=== PATIENT | female | born 1995 | race Caucasian/White ===

== ENCOUNTER 2018-10-04 18:09 | Inpatient (IN) ==
[2018-10-04 12:26] LABS: Amphetamine Screen,Urine Negative ng/mL (Cutoff=1000); Barbiturate Screen,Urine Negative ng/mL (Cutoff=200); Basophils % 0.3 %; Benzodiazepines Screen,Urine Negative ng/mL (Cutoff=200); Cannabinoid Screen,Urine Negative ng/mL (Cutoff = 50); Cocaine Screen,Urine Negative ng/mL (Cutoff= 300); Eosinophils # 0.1 K/mcL (0.0-0.6); Eosinophils % 0.5 %; Hemoglobin 13.5 g/dL (11.5-15.4); Immature Granulocytes % 0.4 % (0-4); Lymphocytes % 18.8 %; Mean Corpuscular HGB Conc 33.8 g/dL (31.6-35.5); Mean Corpuscular Hemoglobin 27.7 pg (28.0-33.3); Mean Corpuscular Volume 82.1 fL (83.0-100.0); Mean Platelet Volume 10.3 fL (9.4-12.4); Monocytes # 0.7 K/mcL (0.0-1.3); Neutrophils # 7.6 K/mcL (1.6-8.9); Opiate Screen,Urine Negative ng/mL (Cutoff=300); Phencyclidine Screen,Urine Negative ng/mL (Cutoff=25); Platelet Count 236 K/mcL (140-400); Red Blood Count 4.87 M/mcL (3.82-4.97)
[2018-10-04 12:40] LABS: Creatinine,Urine 147 mg/dL; Protein/Creatinine Ratio,Urine 2.49 mg/mg (0.00-0.20)
[2018-10-04 13:30] LABS: Bilirubin,Urine Negative (Negative); Blood,Urine Negative (Negative); Clarity,Urine Cloudy (Clear); Color,Urine Yellow (Yellow); Glucose,Urine (UA) Normal (Normal); Ketones,Urine Negative (Negative); Leukocyte Esterase,Urine Negative (Negative); Nitrite,Urine Negative (Negative); PH,Urine 6.5 pH Units (5.0-8.0); Protein,Urine >=300 mg/dL (Neg-Trace); Specific Gravity,Urine 1.022 (1.010-1.025); Urobilinogen,Urine Normal (Normal)
[2018-10-04 13:56] LABS: Bacteria,Urine Moderate per hpf (None-Few); RBC,Urine 0-3 per hpf (0-3); Squamous Epithelial Cell,Urine Many per lpf (None-Few)
[2018-10-04 13:57] LABS: WBC,Urine 0-3 per hpf (0-3)
[2018-10-04 14:50] LABS: Alanine Aminotransferase 13 Units/L (7-52); Aspartate Amino Transferase 13 Units/L (13-39); BUN/Creatinine Ratio 24 (6-26); Blood Urea Nitrogen 12 mg/dL (6-20); Lactate Dehydrogenase 126 Units/L (140-271); eGFR For Non-African Americans > 60 (> 60)
[2018-10-04 15:56] LABS: Total Volume 24 Hour,Urine 1.09 Liters (0.60-1.60)
[2018-10-04 16:11] LABS: Protein/Creatinine Ratio,Urine 0.95 mg/mg (0.00-0.20)
[~2018-10-04 18:09] MED LIST: Acetaminophen 325 MG TABLET PO PRN; Ringers Solution, Lactated 1,000 ML ONE; Ringers Solution, Lactated 500 ML IVC ONE
--- NOTE | 2018-10-04 18:15 | OB/GYN History & Physical ---
Date of Encounter: 10/04/18 Time of Encounter: 18:13 Assessment and Plan (1) 35 weeks gestation of Current visit: Yes Status: Acute Admitted for ongoing during of hypertension Will be taken to the OR for tonight (2) Hypertension complicating in third trimester Current visit: Yes Status: Acute Pressures as high as 180/101 Normotensive pressures as well Will not be treated as patient will be going for (3) Late deceleration of heart rate Current visit: Yes Status: Acute Patient will be taken to the OR for Risks versus benefits discussed with the patient and she is understanding and willing to go to the OR History of Present Illness Chief complaint: Hypertension in HPI: Ms. Galloway is a 23 year old female who presents for elevated blood pressures. She was sent from an office visit that occurred today for further monitoring. She has been mostly asymptomatic from her hypertension with the exception of a headache today. She is , currently 35 weeks . She denies past medical conditions and has been receiving adequate care taking daily folic acid and vitamins. She states she feels movement and denies vaginal bleeding or leakage. Denies contractions at this time. Blood type A+ GBS pending from 10/02 HBSAG neg RPR neg Rubella immune Varicella immune Hep C non-reactive Past Med Surg Social Fam HX - Past Medical History Attestation: Yes The following information was validated with the patient. Source: patient Medical history: no medical history Psychiatric history: no psych history - Past Surgical History Additional surgical history: Left elbow surgery 1999 - Social History Smoking Status: Former smoker Alcohol use: none Drug use: none - Family History Father Hx Family Cardiac Disorders: No Hx Family Respiratory Disorders: No Hx Family Cancer: No Hx Family GI Disorders: No Hx Family Genitourinary Disorders: No Hx Family Endocrine Disorder: No Hx Family Musculoskeletal Disorders: No Hx Family Neuromuscular Disorders: No Hx Family Neurologic Disorders: No Hx Family HEENT Disorders: No Hx Family Autoimmune Disorders: No Hx Family Reproductive Disorders: No Hx Family Psychosocial Disorders: No Hx Family Medical Disorders: No Obstetrical History - Pregnancies : 1 Para: 0 Term: 0 : 0 Ab's: 0 Livin Medications and Allergies Pnv95/Ferrous Fumarate/FA [ Vitamin Tablet] 1 each PO 10/04/18 [History] Allergy/AdvReac Type Severity Reaction Status Date / Time No Known Allergies Allergy Verified 07/09/18 18:19 Review of System OB All systems PM: reviewed and no additional remarkable complaints except as stated Exam - Constitutional Constitutional: well developed, well nourished, no acute distress - HEENT HEENT: EOMI, PERRL, Normocephaly, Mucus Membranes Moist - Neck Neck exam: full ROM - Lungs Respiratory exam: CTAB - Cardiovascular Cardiovascular exam: RRR, +S1, +S2 - Breasts Breast: bilateral: normal - Abdomen Abdomen: Present: bowel sounds normal, gravid, non tender - Extremities Extremities exam: pedal edema, warm Results Result Diagrams: 10/04/18 11:50 10/04/18 13:32 Abnormal lab results MCV 82.1 fL (83.0-100.0) L 10/04/18 11:50 MCH 27.7 pg (28.0-33.3) L 10/04/18 11:50 Creatinine 0.50 mg/dL (0.60-1.20) L 10/04/18 13:32 Lactate Dehydrogenase 126 Units/L (140-271) L 10/04/18 13:32 Urine Clarity Cloudy (Clear) A 10/04/18 11:35 Urine Protein >=300 mg/dL (Neg-Trace) H 10/04/18 11:35 Ur Squamous Epith Cells Many per lpf (None-Few) H 10/04/18 11:35 Urine Bacteria Moderate per hpf (None-Few) H 10/04/18 11:35 Ur Total Protein 24 Hr 1537 mg/day (50-80) H 10/04/18 08:00 Protein/Creatinin Ratio 2.49 mg/mg (0.00-0.20) H 10/04/18 11:50 Urine Total Protein 366 mg/dL (1-14) H 10/04/18 11:50 All other labs normal. - VTE Reasons for not Prescribing Prophylaxis: Treatment not Indicated - Low risk for VTE
--- NOTE | 2018-10-04 18:33 | Anesthesia Evaluation PreOp ---
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 HX Other Medical History: Denies Any Significant HX Anesthesia History: No Prior Anesthetic Complications : Yes Test: Positive Alcohol Use: none Drug use: none Medications and Allergies Pnv95/Ferrous Fumarate/FA [ Vitamin Tablet] 1 each PO 10/04/18 [History] Allergy/AdvReac Type Severity Reaction Status Date / Time No Known Allergies Allergy Verified 07/09/18 18:19 - Meds/Allergy Pre-op Review Medications Reviewed: Yes Allergies Reviewed: Yes Beta Blockers on Current Med List: No Anesthesia Results - Labs 10/04/18 11:50 10/04/18 13:32 Anesthesia Exam - HEENT Pupil (Motor): Pupils equal Mallampati: II Teeth: Normal Oral Opening: Greater than 3 - CAR RENTAL SERVICE ATTENDANT LOC: Oriented CAR RENTAL SERVICE ATTENDANT Motor: Normal RUE, Normal LUE, Normal RLE, Normal LLE, Normal Face [employer] SERVICE ATTENDANT Sensory: Normal: RUE, LUE, RLE, LLE, Face - Cardiac Rhythm: Regular Murmur: None JVD: No Carotid Bruit: No - Pulmonary Breath Sounds: bilateral Clear Respiratory Effort: Symmetrical Anesthesia Assess/Plan ASA Score: 2 Level of consciousness: Cooperative Anesthetic Plan: Spinal
[2018-10-04] MEDS ORDERED: Metoclopramide 10 MG/2 ML VIAL IVP PRN ×2 (18:34→20:22)
[2018-10-04] MEDS ORDERED: Famotidine 20 MG/2 ML VIAL IVP PRN (18:34)
[2018-10-04] MEDS ORDERED: Naloxone 0.4 MG/ML INJ IVP PRN (18:34)
[2018-10-04] MEDS ORDERED: Ringers Solution, Lactated 1,000 ML ONE ×2 (18:40→19:54)
[2018-10-04] MEDS ORDERED: *HR* FentaNYL (PF) 100 MCG/2 ML VIAL ONE (18:40)
[2018-10-04] MEDS ORDERED: *HR* Morphine Sulfate/PF 10 MG/10 ML AMPUL ONE (18:40)
[2018-10-04] MEDS ORDERED: EPHEDrine 50 MG/ML VIAL ONE (18:40)
[2018-10-04] MEDS ORDERED: Bupivacaine-MPF 0.25% 10 ML VIAL ONE (18:40)
[2018-10-04] MEDS ORDERED: Lidocaine -MPF 1% 5 ML AMPUL ONE (18:40)
[2018-10-04] MEDS ORDERED: *HR* Oxytocin 10 UNIT/ML VIAL IM ONE ×2 (18:40→19:54)
[2018-10-04] MEDS ORDERED: *HR* OxyCODONE Immed Rel 5 MG TABLET PO PRN (19:31)
[2018-10-04] MEDS ORDERED: *HR* Meperidine 25 MG/ML SYRINGE IVP PRN (19:31)
[2018-10-04] MEDS ORDERED: Ondansetron 4 MG/2 ML VIAL IVP ONE (19:31)
[2018-10-04] MEDS ORDERED: Ketorolac 30 MG/ML VIAL IVP ONE (19:31)
[2018-10-04] MEDS ORDERED: Albuterol 2.5 MG/3 ML NEBULIZER IH ONE (19:31)
[2018-10-04] MEDS ORDERED: *HR* HYDROmorphone (PF) 1 MG/ML SYRINGE IVP PRN (19:31)
[2018-10-04] MEDS ORDERED: *HR* Labetalol 20 MG/4 ML SYRINGE IVP PRN (19:31)
[2018-10-04] MEDS ORDERED: *HR* Promethazine 25 MG/ML VIAL IVP PRN (19:31)
[2018-10-04] MEDS ORDERED: Acetaminophen IV 1,000 MG/100 ML INFUS..BTL IVPB ONE (19:31)
[2018-10-04] MEDS ORDERED: Ondansetron 4 MG/2 ML VIAL ONE (19:32)
[2018-10-04] MEDS ORDERED: Dexamethasone 4 MG/ML VIAL ONE (19:32)
[2018-10-04] MEDS ORDERED: Ketorolac 30 MG/ML VIAL ONE (19:32)
[2018-10-04] MEDS ORDERED: Sennosides 8.6 MG TABLET PO PRN (20:22)
[2018-10-04] MEDS ORDERED: Ondansetron 4 MG/2 ML VIAL IVP PRN (20:22)
[2018-10-04] MEDS ORDERED: Simethicone 80 MG TAB.CHEW PO PRN (20:22)
[2018-10-04] MEDS ORDERED: Oxytocin 20 units/ LR 1000 mL 20 UNIT/1,000 ML BAG IVC SCH (20:30)
--- NOTE | 2018-10-04 20:43 | OB/GYN Procedure Note ---
Section - Date of procedure: 10/04/18 Preop diagnosis: category 3 FHT tracing Post-op diagnosis: same Procedure: primary low transverse Surgeon: Alcira Miller Blood Loss: 300 Was there an assistant to the vice president present: No Anesthesia Type: Spinal section complications: uterine atony Disposition: L&D Recovery Room Specimens: Placenta, Cord segment, Cord blood - (s) A Infant Delivery Date: 10/04/18 Infant Delivery Time: 19:20 Presentation: vertex Gender: Male Viability: Viable Pounds: 4 Ounces: 5 at 1 minute: 8 at 5 minutes: 9 - Narrative Narrative: Patient presented for R/o PreE with mild range BP at 35+ weeks GA. Patient with UPC 2.45, elevated 24hr urine and BPs (mild ranging). Unfortunately CEFM revealed recurrent late deceleration(s). Unfortunately we had to call this an emergent or "STAT" primary low transverse delivery due to non- reassuring well-being. The patient was taken to the OR, where we were able to get adequate spinal anestehsia with a reassuring tracing. Regardless of this temporary reassurance, the plan to proceed with delivery was made as her tracing had been CAT III. The patient was then prepped and draped in the usual sterile fashion. A pfannenstiel skin incision was made, carried down to the level of the fascia. We scored the fascia at the midline and then extended the incision bilaterally using curved mayos. We then tented up the anterior and inferior fascia layers and it from the abdominis rectus muscle. This plane was then taken do wn both superiorly and inferiorly. We then bluntly entered the abdominal cavity at the midline, and with bilateral but equal tension we the peritoneal layer. A bladder blade was then placed with more than adequate visualization of the lower uterine segment. The bladder reflection was then appreciated. Hysterotomy was performed in a low transverse fashion. We then the hysterotomy inferiorly and superiorly without extension. Baby was found to be in the vertex presentation. Spontaneous AROM (clear fluid) occurred with manual manipulation of delivery. THe delivered with adequate fundal pressure, no nuchal appreciated. THe baby was vigorous and crying, we clamped and cut after 30 second cord delay. Baby was handed off to the NICU team and warmer for further evaluation. We then exteriorized the uterus and removed the placenta. Placenta was labeled and sent to pathology. Cord blood was also collected with a cord segment. Gases were not collected/sent. We then closed the hysterotomy in two layers. IN a running locked fashion, we used 0-vicryl suture to close the hysterotomy. We then used 2-0 chromic gut to imbricate the incision. IV pitocin was c ontinued and we had to also start hemabate for persistent oozing. Two figure of 8 stitches were placed at the midline before hemostasis was finally appreciated. The uterus was returned back into the abdomen. Hemostasis was appreciated at both angles but patient was persistently oozy around the edges of the fascia, as well as the adipose tissue. We closed the two layered fascia using Stratifix suture (barbed). We then closed the skin using 4-0 monocryl suture. Hemostasis was appreciated. Incision was closed using telfa and tegaderm. EBL: 300mL Male Time delivered: 1920 Apgars: 8/9 Counts were correct x3. MD SALO SEGURA
--- NOTE | 2018-10-04 21:35 | Anesthesia Procedures ---
Addendum entered and electronically signed by Brigid Martinez CRNA 10/04/18 23:30: - (s) Infant A Delivery Date: 10/04/18 Delivery Time: 19:20 Original Note: Date of Encounter: 10/04/18 Time of Encounter: 20:00 Procedures: Anesthesia - Epidural/Spinal Patient examined: Yes OB Eval: Gestational age: 35.2 OB Eval: : 1 OB Eval: Hx Para: 0 OB Eval: Contractions: Non-stressed pattern Consent Obtained: Yes Site Prep: Aseptic Technique, Sterile prep and drape, Povidone-Iodine 1% Patient position: upright Amount of Local Anesthetic used: 3 Interspace Used: L4-L5 Loss of Resistance (MAKENZIE): No Blood: No CSF: Yes Paresthesia: No Spinal Needle Gauge: 22 Procedure: tolerated SAB well no anesthesia concerns Vitals + FHT's: stable throughout see nursing notes
--- NOTE | 2018-10-04 23:32 | Anesthesia Evaluation Post Op ---
Date of Encounter: 10/04/18 Time of Encounter: 22:00 - Vital Signs Vital Signs: Vital Signs/O2 Sat/Glucose, Most Current Temp Pulse Resp BP Pulse Ox 10/04/18 23:01 98.0 F 63 15 130/80 94 10/04/18 22:32 98.1 F 67 15 140/80 94 10/04/18 22:15 98.0 F 68 16 141/85 93 10/04/18 22:00 97.7 F 61 16 135/80 94 10/04/18 21:54 97.8 F 62 18 120/81 98 - Lungs Lungs: Clear Ascult./Percussion - Airway Airway: Non-obstructed - Cardiovascular Regular Rate - Mental Status Mental Status: Alert & Oriented, Answers Appropriately - Pain Pain Scale: 0 - Nausea Vomiting Nausea Vomiting: Not Present - Hydration Hydration: NPO, Rees catheter - Discharge PostOp Status: Transfer Patient to floor
[2018-10-05 07:10] LABS: Basophils % 0.1 %; Hematocrit 33.8 % (35.3-44.9); Immature Granulocytes % 0.4 % (0-4); Lymphocytes # 1.4 K/mcL (0.6-4.6); Lymphocytes % 9.9 %; Mean Corpuscular HGB Conc 34.3 g/dL (31.6-35.5); Mean Corpuscular Hemoglobin 28.2 pg (28.0-33.3); Mean Platelet Volume 10.3 fL (9.4-12.4); Monocytes # 0.6 K/mcL (0.0-1.3); Monocytes % 4.4 %; Neutrophils # 11.7 K/mcL (1.6-8.9); Platelet Count 195 K/mcL (140-400); Red Blood Count 4.12 M/mcL (3.82-4.97); Red Cell Distribution Width 13.1 % (11.5-14.5); Segmented Neutrophils % 85.2 %
[2018-10-05 07:16] LABS: Hemoglobin 11.6 g/dL (11.5-15.4)
[2018-10-05] MEDS: Prenatal Vit/FA 1 EACH TABLET PO SCH (08:51)
--- NOTE | 2018-10-05 11:28 | OB/GYN Progress Note ---
Date of Encounter: 10/05/18 Time of Encounter: 11:26 - Assessment and Plan (1) S/P primary low transverse Current Visit: Yes Status: Acute Meeting all day 1 milestones Continue routine care Anticipate discharge home tomorrow Subjective - Subjective Principal diagnosis: s/p PLTCS Interval history: Feeling well. Out of bed without dizziness. Some abdominal discomfort-using binder. Cramping minimal, using ibuprofen and Percocet. every 2- 3 hours. Some nipple soreness. Voiding without difficulty. Passing flatus, no BM yet. Tolerating clear liquid diet. Patient reports: appetite normal, voiding normally, pain well controlled, ambulating normally [place]: doing well, in NICU, nursing well Objective - Vital Signs Latest vital signs: Vital Signs Temp Pulse Resp BP Pulse Ox 10/05/18 04:11 98.3 F 77 14 119/75 92 10/05/18 01:49 98.0 F 83 15 126/83 97 10/05/18 00:30 97.9 F 71 16 128/73 96 10/04/18 23:35 97.6 F 63 15 134/82 98 10/04/18 23:01 98.0 F 63 15 130/80 94 10/04/18 22:32 98.1 F 67 15 140/80 94 10/04/18 22:15 98.0 F 68 16 141/85 93 10/04/18 22:00 97.7 F 61 16 135/80 94 10/04/18 21:54 97.8 F 62 18 120/81 98 10/04/18 18:35 97.9 F 72 16 139/87 Intake and Output 10/04/18 10/05/18 10/05/18 23:59 07:59 15:59 Intake Total 360 / 360 340 / 340 Output Total 410 / 410 450 / 450 Balance -50 / -50 -110 / -110 Intake: Oral 360 / 360 100 / 100 Tube Feeding 240 / 240 Output: Urine 450 / 450 Catheter 410 / 410 Other: Meal Breakfast Weight 130.181 kg Patient Weight 10/05/18 23:59 Weight 130.181 kg - Exam Lungs: bilateral: normal Chest: Normal S1, Normal S2 Extremities: Present: normal Abdomen: Present: normal appearance, soft Incision: Present: normal, dry, dressed Uterus: Present: normal, firm Fundal Height: 0 (midline and firm) - Labs Labs: Laboratory Results - last 24 hr 10/04/18 10/04/18 10/04/18 08:00 11:35 11:50 WBC RBC Hgb Hct MCV MCH MCHC RDW Plt Count MPV Immature Gran % Seg Neutrophils % Lymphocytes % Monocytes % Eosinophils % Basophils % Neutrophils # Lymphocytes # Monocytes # Eosinophils # Basophils # BUN Creatinine Est GFR ( Amer) Est GFR (Non-Af Amer) BUN/Creatinine Ratio Uric Acid AST ALT Lactate Dehydrogenase Urine Color Yellow Urine Clarity Cloudy A Urine pH 6.5 Ur Specific [place] 1.022 Urine Protein >=300 H Urine Glucose (UA) Normal Urine Ketones Negative Urine Blood Negative Urine Nitrite Negative Urine Bilirubin Negative Urine Urobilinogen Normal Ur Leukocyte Esterase Negative Urine Microscopic RBC 0-3 Urine Microscopic WBC 0-3 Ur Squamous Epith Cells Many H Urine Bacteria Moderate H Ur Culture Indicated? NO Urine Total Volume 1.09 Urine Creatinine 149 147 Ur Creatinine 24 Hour 1624 Ur Total Protein 24 Hr 1537 H Protein/Creatinin Ratio 0.95 H 2.49 H Urine Total Protein 141 H 366 H Urine Opiates Screen Negative Ur Barbiturates Screen Negative Ur Phencyclidine Scrn Negative Ur Amphetamines Screen Negative U Benzodiazepines Scrn Negative Urine Cocaine Screen Negative U Marijuana (THC) Screen Negative Ur Drug Screen Interp See Below Specimen Rejected 10/04/18 10/04/18 10/04/18 11:50 13:15 13:32 WBC 10.4 RBC 4.87 Hgb 13.5 Hct 40.0 MCV 82.1 L MCH 27.7 L MCHC 33.8 RDW 13.0 Plt Count 236 MPV 10.3 Immature Gran % 0.4 Seg Neutrophils % 73.0 Lymphocytes % 18.8 Monocytes % 7.0 Eosinophils % 0.5 Basophils % 0.3 Neutrophils # 7.6 Lymphocytes # 2.0 Monocytes # 0.7 Eosinophils # 0.1 Basophils # 0.0 BUN 12 Creatinine 0.50 L Est GFR ( Amer) > 60 Est GFR (Non-Af Amer) > 60 BUN/Creatinine Ratio 24 Uric Acid 7.0 AST 13 ALT 13 Lactate Dehydrogenase 126 L Urine Color Urine Clarity Urine pH Ur Specific [place] Urine Protein Urine Glucose (UA) Urine Ketones Urine Blood Urine Nitrite Urine Bilirubin Urine Urobilinogen Ur Leukocyte Esterase Urine Microscopic RBC Urine Microscopic WBC Ur Squamous Epith Cells Urine Bacteria Ur Culture Indicated? Urine Total Volume Urine Creatinine Ur Creatinine 24 Hour Ur Total Protein 24 Hr Protein/Creatinin Ratio Urine Total Protein Urine Opiates Screen Ur Barbiturates Screen Ur Phencyclidine Scrn Ur Amphetamines Screen U Benzodiazepines Scrn Urine Cocaine Screen U Marijuana (THC) Screen Ur Drug Screen Interp Specimen Rejected Hemolyzed 10/05/18 06:21 WBC 13.7 H RBC 4.12 Hgb 11.6 D Hct 33.8 L MCV 82.0 L MCH 28.2 MCHC 34.3 RDW 13.1 Plt Count 195 MPV 10.3 Immature Gran % 0.4 Seg Neutrophils % 85.2 Lymphocytes % 9.9 Monocytes % 4.4 Eosinophils % 0.0 Basophils % 0.1 Neutrophils # 11.7 H Lymphocytes # 1.4 Monocytes # 0.6 Eosinophils # 0.0 Basophils # 0.0 BUN Creatinine Est GFR ( Amer) Est GFR (Non-Af Amer) BUN/Creatinine Ratio Uric Acid AST ALT Lactate Dehydrogenase Urine Color Urine Clarity Urine pH Ur Specific [place] Urine Protein Urine Glucose (UA) Urine Ketones Urine Blood Urine Nitrite Urine Bilirubin Urine Urobilinogen Ur Leukocyte Esterase Urine Microscopic RBC Urine Microscopic WBC Ur Squamous Epith Cells Urine Bacteria Ur Culture Indicated? Urine Total Volume Urine Creatinine Ur Creatinine 24 Hour Ur Total Protein 24 Hr Protein/Creatinin Ratio Urine Total Protein Urine Opiates Screen Ur Barbiturates Screen Ur Phencyclidine Scrn Ur Amphetamines Screen U Benzodiazepines Scrn Urine Cocaine Screen U Marijuana (THC) Screen Ur Drug Screen Interp Specimen Rejected
[2018-10-05] MEDS: Ibuprofen 600 MG TABLET PO PRN (16:49)
[2018-10-05] MEDS: *HR* OxyCODONE/APAP 5/325 TABLET PO PRN (19:56)
[2018-10-06] MEDS: Ibuprofen 600 MG TABLET PO PRN ×2 (00:28→09:14)
[2018-10-06] MEDS: *HR* OxyCODONE/APAP 5/325 TABLET PO PRN (00:32)
[2018-10-06] MEDS: Prenatal Vit/FA 1 EACH TABLET PO SCH (09:14)
--- NOTE | 2018-10-06 11:18 | Discharge Summary ---
Date of Encounter: 10/06/18 Time of Encounter: 11:14 - Discharge Diagnosis (1) S/P primary low transverse Priority: Primary Status: Acute Comments: Patient meeting PPD2 milestones. +flatus, denies BM. Reports pain managed by Motrin & Percocet. BPs PP have been 110-140/70-80; denies headache or visual change. Discussed control options and safe spacing. Patient denies control today. OARRS report verified. Anticipate discharge home today. Patient desires to guest while in [facility]. - Discharge Medications Prescriptions: New Ibuprofen [Motrin] 600 mg PO Q6HR PRN #60 tablet PRN Reason: Cramping OxyCODONE/APAP 5/325 [Percocet 5/325 MG] 1 each PO Q6HR PRN 7 Days #28 tablet PRN Reason: Moderate pain 4-6 Docusate [Colace] 100 mg PO BID #60 capsule Continue Pnv95/Ferrous Fumarate/FA [ Vitamin Tablet] 1 each PO Home Medications: Pnv95/Ferrous Fumarate/FA [ Vitamin Tablet] 1 each PO 10/04/18 [History] Docusate [Colace] 100 mg PO BID #60 capsule 10/06/18 [Rx] Ibuprofen [Motrin] 600 mg PO Q6HR PRN #60 tablet 10/06/18 [Rx] OxyCODONE/APAP 5/325 [Percocet 5/325 MG] 1 each PO Q6HR PRN 7 Days #28 tablet 10/06/18 [Rx] Allergies/Adverse Reactions: Allergy/AdvReac Type Severity Reaction Status Date / Time No Known Allergies Allergy Verified 07/09/18 18:19 Data Procedures and tests throughout hospitalization: Laboratory Tests 10/04/18 10/04/18 10/04/18 08:00 11:35 11:50 WBC RBC Hgb Hct MCV MCH MCHC RDW Plt Count MPV Immature Gran % Seg Neutrophils % Lymphocytes % Monocytes % Eosinophils % Basophils % Neutrophils # Lymphocytes # Monocytes # Eosinophils # Basophils # BUN Creatinine Est GFR ( Amer) Est GFR (Non-Af Amer) BUN/Creatinine Ratio Uric Acid AST ALT Lactate Dehydrogenase Urine Color Yellow Urine Clarity Cloudy A Urine pH 6.5 Ur Specific Gustine 1.022 Urine Protein >=300 H Urine Glucose (UA) Normal Urine Ketones Negative Urine Blood Negative Urine Nitrite Negative Urine Bilirubin Negative Urine Urobilinogen Normal Ur Leukocyte Esterase Negative Urine Microscopic RBC 0-3 Urine Microscopic WBC 0-3 Ur Squamous Epith Cells Many H Urine Bacteria Moderate H Ur Culture Indicated? NO Urine Total Volume 1.09 Urine Creatinine 149 147 Ur Creatinine 24 Hour 1624 Ur Total Protein 24 Hr 1537 H Protein/Creatinin Ratio 0.95 H 2.49 H Urine Total Protein 141 H 366 H Urine Opiates Screen Negative Ur Barbiturates Screen Negative Ur Phencyclidine Scrn Negative Ur Amphetamines Screen Negative U Benzodiazepines Scrn Negative Urine Cocaine Screen Negative U Marijuana (THC) Screen Negative Ur Drug Screen Interp See Below Specimen Rejected 10/04/18 10/04/18 10/04/18 11:50 13:15 13:32 WBC 10.4 RBC 4.87 Hgb 13.5 Hct 40.0 MCV 82.1 L MCH 27.7 L MCHC 33.8 RDW 13.0 Plt Count 236 MPV 10.3 Immature Gran % 0.4 Seg Neutrophils % 73.0 Lymphocytes % 18.8 Monocytes % 7.0 Eosinophils % 0.5 Basophils % 0.3 Neutrophils # 7.6 Lymphocytes # 2.0 Monocytes # 0.7 Eosinophils # 0.1 Basophils # 0.0 BUN 12 Creatinine 0.50 L Est GFR ( Amer) > 60 Est GFR (Non-Af Amer) > 60 BUN/Creatinine Ratio 24 Uric Acid 7.0 AST 13 ALT 13 Lactate Dehydrogenase 126 L Urine Color Urine Clarity Urine pH Ur Specific Gustine Urine Protein Urine Glucose (UA) Urine Ketones Urine Blood Urine Nitrite Urine Bilirubin Urine Urobilinogen Ur Leukocyte Esterase Urine Microscopic RBC Urine Microscopic WBC Ur Squamous Epith Cells Urine Bacteria Ur Culture Indicated? Urine Total Volume Urine Creatinine Ur Creatinine 24 Hour Ur Total Protein 24 Hr Protein/Creatinin Ratio Urine Total Protein Urine Opiates Screen Ur Barbiturates Screen Ur Phencyclidine Scrn Ur Amphetamines Screen U Benzodiazepines Scrn Urine Cocaine Screen U Marijuana (THC) Screen Ur Drug Screen Interp Specimen Rejected Hemolyzed 10/05/18 06:21 WBC 13.7 H RBC 4.12 Hgb 11.6 D Hct 33.8 L MCV 82.0 L MCH 28.2 MCHC 34.3 RDW 13.1 Plt Count 195 MPV 10.3 Immature Gran % 0.4 Seg Neutrophils % 85.2 Lymphocytes % 9.9 Monocytes % 4.4 Eosinophils % 0.0 Basophils % 0.1 Neutrophils # 11.7 H Lymphocytes # 1.4 Monocytes # 0.6 Eosinophils # 0.0 Basophils # 0.0 BUN Creatinine Est GFR ( Amer) Est GFR (Non-Af Amer) BUN/Creatinine Ratio Uric Acid AST ALT Lactate Dehydrogenase Urine Color Urine Clarity Urine pH Ur Specific Gustine Urine Protein Urine Glucose (UA) Urine Ketones Urine Blood Urine Nitrite Urine Bilirubin Urine Urobilinogen Ur Leukocyte Esterase Urine Microscopic RBC Urine Microscopic WBC Ur Squamous Epith Cells Urine Bacteria Ur Culture Indicated? Urine Total Volume Urine Creatinine Ur Creatinine 24 Hour Ur Total Protein 24 Hr Protein/Creatinin Ratio Urine Total Protein Urine Opiates Screen Ur Barbiturates Screen Ur Phencyclidine Scrn Ur Amphetamines Screen U Benzodiazepines Scrn Urine Cocaine Screen U Marijuana (THC) Screen Ur Drug Screen Interp Specimen Rejected Date of admission: 10/04/18 21:55 Primary care physician: Mariola Zhao CNP Discharging clinician: Marily Damian Anticipated date of discharge: 10/06/18 - Patient Status Disposition: Home, Self-Care Condition: Good Functional capacity at discharge: independent ambulation Overall status at discharge: patient is progressing back to baseline - Discharge Instructions Follow Up With: Mariola Zhao CNP [Primary Care Provider] - Alcira Cuellar MD [Partnered Physician] - - Diet and Activity Activity: increase activity as tolerated Diet: advance to your usual diet Hospital Course Reason for admission: IUP - , section Delivery: section Episiotomy: none Laceration: none Other procedures: none complications: none Discharge diagnosis: delivery [place] baby: male Hospital course: Date of procedure: 10/04/18 Preop diagnosis: category 3 FHT tracing Post-op diagnosis: same Procedure: primary low transverse Surgeon: Alcira Cuellar Quantitated Blood Loss: 300 Was there an graphic design assistant present: No Anesthesia Type: Spinal section complications: uterine atony Disposition: L&D Recovery Room Specimens: Placenta, Cord segment, Cord blood - Infant (s) Infant A Infant Delivery Date: 10/04/18 Infant Delivery Time: 19:20 Presentation: vertex Gender: Male Viability: Viable Pounds: 4 Ounces: 5 at 1 minute: 8 at 5 minutes: 9 - Narrative Narrative: Patient presented for R/o PreE with mild range BP at 35+ weeks GA. Patient with UPC 2.45, elevated 24hr urine and BPs (mild ranging). Unfortunately CEFM revealed recurrent late deceleration(s). Unfortunately we had to call this an emergent or "STAT" primary low transverse delivery due to non- reassuring well-being. The patient was taken to the OR, where we were able to get adequate spinal anestehsia with a reassuring tracing. Regardless of this temporary reassurance, the plan to proceed with delivery was made as her tracing had been CAT III. The patient was then prepped and draped in the usual sterile fashion. A pfannenstiel skin incision was made, carried down to the level of the fascia. We scored the fascia at the midline and then extended the incision bilaterally using curved mayos. We then tented up the anterior and inferior fascia layers and it from the abdominis rectus muscle. This plane was then taken down both superiorly and inferiorly. We then bluntly entered the abdominal cavity at the midline, and with bilateral but equal tension we the peritoneal layer. A bladder blade was then placed with more than adequate visualization of the lower uterine segment. The bladder reflection was then appreciated. Hysterotomy was performed in a low transverse fashion. We then the hysterotomy inferiorly and superiorly without extension. Baby was found to be in the vertex presentation. Spontaneous AROM (clear fluid) occurred with manual manipulation of delivery. THe infant delivered with adequate fundal pressure, no nuchal appreciated. THe baby was vigorous and crying, we clamped and cut after 30 second cord delay. Baby was handed off to the NICU team and warmer for further evaluation. We then exteriorized the uterus and removed the placenta. Placenta was labeled and sent to pathology. Cord blood was also collected with a cord segment. Gases were not collected/sent. We then closed the hysterotomy in two layers. IN a running locked fashion, we used 0-vicryl suture to close the hysterotomy. We then used 2-0 chromic gut to imbricate the incision. IV pitocin was continued and we had to also start hemabate for persistent oozing. Two figure of 8 stitches were placed at the midline before hemostasis was finally appreciated. The uterus was returned back into the abdomen. Hemostasis was appreciated at both angles but patient was persistently oozy around the edges of the fascia, as well as the adipose tissue. We closed the two layered fascia using Stratifix suture (barbed). We then closed the skin using 4-0 monocryl suture. Hemostasis was appreciated. Incision was closed using telfa and tegaderm. EBL: 300mL Male Time delivered: 1920 Apgars: 8/9 Counts were correct x3. MD [facility] Time spent discussing smoking cessation with patient: 3 to 10 minutes Time Attestation: Total time spent providing and/or coordinating discharge services: - VTE Reasons for not Prescribing Prophylaxis: Treatment not Indicated - Low risk for VTE Documentation of Mechanical Device: Intermittent pneumatic compression device Exam - Constitutional Vitals: Temp Pulse Resp BP Pulse Ox 98.4 F 81 16 112/76 98 10/06/18 08:54 10/06/18 08:54 10/06/18 10:26 10/06/18 08:54 10/06/18 08:54 General appearance IM: A&O X 3, pleasant, no acute distress - Respiratory Respiratory exam: Present: CTAB - Cardiovascular Cardiovascular exam IM: Present: RRR, +S1, +S2 - GI/Abdominal GI/Abdominal exam IM: normal bowel sounds, soft, no peritoneal signs Incision: dry, intact (incision intact with no signs of infection. Incision AUTOMOBILE UPHOLSTERER with Steri-strips intact. ) - Uterine Tone: Firm Uterus Position: 1 Finger Below Umbilicus, Midline - Extremities Exam Extremities exam IM: Present: pedal edema (1+). Absent: calf tenderness - Neurological Exam Neurological exam: alert, oriented X3, reflexes normal - Psychiatric Additional comments: reports good mood
== END 2018-10-06 14:01 | disposition home or self-care (01) | DRG 788 ==
LOC: 1NENULAB → 1NENUOBS 21:52
PROVIDERS: ADMIT Registered Nurse; ATTEND Registered Nurse

== ENCOUNTER 2021-09-02 09:35 | Inpatient (IN) ==
[2021-09-02] MEDS ORDERED: CeFAZolin Syr 3,000MG/30 ML 3,000 MG/30 ML SYRINGE IVPB ONE (09:55)
[2021-09-02] MEDS ORDERED: Famotidine 20 MG/2 ML VIAL IVP ONE (09:55)
[2021-09-02] MEDS ORDERED: Oxytocin 20 units/ LR 1000 mL 20 UNIT/1,000 ML BAG IVC ONE (09:55)
[2021-09-02] MEDS ORDERED: Ringers Solution, Lactated 1,000 ML IVC ONE (09:55)
[2021-09-02] MEDS ORDERED: Metoclopramide 10 MG/2 ML VIAL IVP ONE (09:55)
[2021-09-02] MEDS ORDERED: Ringers Solution, Lactated 1,000 ML IVC SCH (10:00)
[2021-09-02] MEDS ORDERED: Oxytocin 20 units/ LR 1000 mL 20 UNIT/1,000 ML BAG IVC SCH (10:00)
[2021-09-02 10:47] LABS: Basophils % 0.3 %; Eosinophils # 0.1 K/mcL (0.0-0.6); Eosinophils % 0.9 %; Hematocrit 37.4 % (35.3-44.9); Hemoglobin 12.4 g/dL (11.5-15.4); Immature Granulocytes % 0.3 % (0-4); Lymphocytes # 1.4 K/mcL (0.6-4.6); Lymphocytes % 17.9 %; Mean Corpuscular HGB Conc 33.2 g/dL (31.6-35.5); Mean Corpuscular Hemoglobin 26.6 pg (28.0-33.3); Mean Corpuscular Volume 80.1 fL (83.0-100.0); Mean Platelet Volume 9.4 fL (9.4-12.4); Monocytes # 0.5 K/mcL (0.0-1.3); Monocytes % 6.6 %; Neutrophils # 5.6 K/mcL (1.6-8.9); Platelet Count 187 K/mcL (140-400); Red Blood Count 4.67 M/mcL (3.82-4.97); Red Cell Distribution Width 13.2 % (11.5-14.5); White Blood Count 7.6 K/mcL (4.3-11.1)
[2021-09-02 10:56] LABS: Amphetamine Screen,Urine Negative ng/mL (Cutoff=1000); Barbiturate Screen,Urine Negative ng/mL (Cutoff=200); Benzodiazepines Screen,Urine Negative ng/mL (Cutoff=200); Cannabinoid Screen,Urine Negative ng/mL (Cutoff = 50); Cocaine Screen,Urine Negative ng/mL (Cutoff= 300); Opiate Screen,Urine Negative ng/mL (Cutoff=300); Phencyclidine Screen,Urine Negative ng/mL (Cutoff=25)
[2021-09-02 11:09] LABS: Influenza A PCR Negative (Negative); Influenza B PCR Negative (Negative); Resp. Syncytial Virus PCR Negative (Negative)
[2021-09-02 11:10] LABS: SARS-CoV-2 by PCR (In House) Negative (Negative)
[2021-09-02] MEDS ORDERED: *HR* Phenylephrine 10 MG/ML VIAL ONE (11:29)
[2021-09-02] MEDS ORDERED: *HR* FentaNYL (PF) 100 MCG/2 ML VIAL ONE (11:29)
[2021-09-02] MEDS ORDERED: *HR* Morphine Sulfate/PF 10 MG/10 ML AMPUL ONE (11:29)
[2021-09-02] MEDS ORDERED: Ondansetron 4 MG/2 ML VIAL ONE (11:29)
[2021-09-02] MEDS ORDERED: *HR* Oxytocin 10 UNIT/ML VIAL ONE (12:09)
[2021-09-02] MEDS ORDERED: *HR* FentaNYL (PF) 100 MCG/2 ML VIAL IVP PRN (12:14)
[2021-09-02] MEDS ORDERED: Promethazine 6.25 MG in Water for inj. (sterile) 20 ML IVPB PRN (12:14)
[2021-09-02] MEDS ORDERED: Naloxone 0.4 MG/ML INJ IVP PRN (12:14)
[2021-09-02] MEDS ORDERED: *HR* OxyCODONE Immed Rel 5 MG TABLET PO PRN (12:14)
[2021-09-02] MEDS ORDERED: Acetaminophen IV 1,000 MG/100 ML BAG IVPB ONE (12:24)
[2021-09-02] MEDS ORDERED: Ketorolac 30 MG/ML VIAL ONE (12:51)
[2021-09-02] MEDS ORDERED: Metoclopramide 10 MG/2 ML VIAL IVP PRN (15:33)
[2021-09-02] MEDS ORDERED: Ondansetron 4 MG/2 ML VIAL IVP PRN (15:33)
[2021-09-02] MEDS ORDERED: Simethicone 80 MG TAB.CHEW PO PRN (15:33)
[2021-09-02] MEDS: Oxytocin 20 units/ LR 1000 mL 20 UNIT/1,000 ML BAG IVC SCH ×2 (15:48→22:22)
[2021-09-02] MEDS: Acetaminophen 325 MG TABLET PO SCH ×2 (15:48→21:17)
[2021-09-02] MEDS: Ibuprofen 600 MG TABLET PO SCH ×2 (15:48→21:17)
[2021-09-02] MEDS: metroNIDAZOLE 500 MG TABLET PO SCH ×2 (15:48→21:17)
[2021-09-02] MEDS: CeFAZolin 2,000 MG/120 ML BAG IVPB SCH (20:08)
[2021-09-03] MEDS: *HR* Enoxaparin 80 MG/0.8 ML SYRINGE SQ SCH ×3 (00:24→23:55)
[2021-09-03] MEDS: CeFAZolin 2,000 MG/120 ML BAG IVPB SCH ×2 (03:40→12:18)
[2021-09-03] MEDS: Acetaminophen 325 MG TABLET PO SCH ×3 (03:41→20:46)
[2021-09-03] MEDS: Ibuprofen 600 MG TABLET PO SCH ×3 (03:41→20:47)
[2021-09-03 04:04] LABS: Basophils % 0.1 %; Eosinophils # 0.1 K/mcL (0.0-0.6); Eosinophils % 0.8 %; Immature Granulocytes % 0.4 % (0-4); Lymphocytes # 1.4 K/mcL (0.6-4.6); Mean Corpuscular HGB Conc 32.4 g/dL (31.6-35.5); Mean Corpuscular Hemoglobin 26.8 pg (28.0-33.3); Mean Corpuscular Volume 82.5 fL (83.0-100.0); Mean Platelet Volume 9.3 fL (9.4-12.4); Monocytes # 0.5 K/mcL (0.0-1.3); Monocytes % 7.2 %; Neutrophils # 5.5 K/mcL (1.6-8.9); Platelet Count 139 K/mcL (140-400); Red Cell Distribution Width 13.3 % (11.5-14.5); Segmented Neutrophils % 73.5 %; White Blood Count 7.5 K/mcL (4.3-11.1)
[2021-09-03 04:09] LABS: Hemoglobin 10.7 g/dL (11.5-15.4)
[2021-09-03] MEDS: Oxytocin 20 units/ LR 1000 mL 20 UNIT/1,000 ML BAG IVC SCH (06:40)
[2021-09-03] MEDS: metroNIDAZOLE 500 MG TABLET PO SCH ×3 (08:17→20:47)
[2021-09-03] MEDS: Prenatal Vit/FA 1 EACH TABLET PO SCH (08:17)
[2021-09-03] MEDS: *HR* OxyCODONE Immed Rel 5 MG TABLET PO PRN ×4 (08:17→23:55)
[2021-09-03] MEDS ORDERED: [UNRECOGNIZED DRUG - REMARK] PO SCH (09:00)
[2021-09-04 06:31] VITALS: BP 108/68; PULSE 85; TEMP 98.1; O2SAT 98
[2021-09-04] MEDS: metroNIDAZOLE 500 MG TABLET PO SCH (09:51)
[2021-09-04] MEDS: Prenatal Vit/FA 1 EACH TABLET PO SCH (09:51)
[2021-09-04] MEDS: Acetaminophen 325 MG TABLET PO SCH (09:51)
== END 2021-09-04 11:53 | disposition home or self-care (01) | DRG 787 ==
LOC: 1NENULAB 09:35 → 1NENUOBS 15:31
PROVIDERS: ADMIT Obstetrics & Gynecology; ATTEND Obstetrics & Gynecology